=== PATIENT | male | born 1980 | race Caucasian/White ===

== ENCOUNTER 2017-03-01 20:42 | Emergency (ER) | payer SELFPAY | END 2017-03-02 05:50 | disposition home or self-care (01) | LOC: FTE 20:42 | DX: S06.0X0A Concussion without loss of consciousness, initial encounter (principal); S00.83XA Contusion of other part of head, initial encounter; S16.1XXA Strain of muscle, fascia and tendon at neck level, initial encounter; S80.02XA Contusion of left knee, initial encounter; Y04.8XXA Assault by other bodily force, initial encounter | CPT/HCPCS: 70450; 70486; 72125; 73562; 99285-25 ==